=== PATIENT | female | born 1995 | race Caucasian/White ===

== ENCOUNTER 2016-11-09 14:35 | Emergency (ER) | payer OTHER ==
[~2016-11-09] VITALS: Ht 157.5 cm; Wt 60.0 kg
[2016-11-09 14:42] VITALS: Ht 157.5 cm; Wt 60.0 kg
[2016-11-09 17:24] LABS: URINE BLOOD (Dip) POC Trace-intact (NEGATIVE)
--- NOTE | 2016-11-09 19:14 | RADRPT ---
PROCEDURE: US OB. CLINICAL INDICATION: Pain TECHNIQUE: Transabdominal imaging of the pelvis was performed. Images are reviewed on a high-reso [employer] PACS workstation. COMPARISON: None available FINDINGS: Single intrauterine gestation is identified. heart rate is 176 bpm. [place]-rump length = 4.87 cm. Gestational age is 11 weeks 1 day and QING is 05/30/2017 by ultrasound criteria. Left ovary is unremarkable. Right ovary is not visualized. No adnexal mass or pelvic free fluid is identified. IMPRESSION: 1. Single live intrauterine with an estimated gestational age of 11 weeks 1 day by ultras ound criteria, as above. RPTAT: HDWR .Bin Escobedo MD, MD Date Time Electronically viewed and signed by .Bin Escobedo MD, on 11/09/2016 19:14 .R/
[2016-11-09 19:21] LABS: BASOPHILS % 0.3 % (0.0-2.0); EOSINOPHILS # 0.2 10^3/ul (0.0-0.5); EOSINOPHILS % 2.2 % (0.0-7.0); HEMATOCRIT 36.7 % (37.0-47.0); HEMOGLOBIN 12.5 g/dl (12.0-16.0); LYMPHOCYTES # 1.4 10^3/ul (0.8-2.9); LYMPHOCYTES % 17.4 % (15.0-51.0); MEAN CORPUSCULAR HEMOGLOBIN 29.1 pg (29.0-33.0); MEAN CORPUSCULAR HGB CONC 34.1 g/dl (32.0-37.0); MEAN CORPUSCULAR VOLUME 85.3 fl (82.0-101.0); MEAN PLATELET VOLUME 6.8 fl (7.4-10.4); MONOCYTE # 0.5 10^3/ul (0.3-0.9); MONOCYTES % 6.5 % (0.0-11.0); NEUTROPHILS % 73.6 % (39.0-77.0); PLATELET COUNT 339 10^3/UL (140-440); RED BLOOD COUNT 4.31 10^6/ul (4.20-5.40); RED CELL DISTRIBUTION WIDTH 13.2 % (11.5-14.5); UNCORRECTED WBC 8.1 10^3/ul (4.8-10.8); WHITE BLOOD COUNT 8.1 10^3/ul (4.8-10.8)
[2016-11-09 19:27] LABS: CONDITION 1
[2016-11-09] MEDS ORDERED: ACET325T33 PO (21:00)
[2016-11-09] MEDS ORDERED: CEPH-443 PO (21:00)
--- NOTE | 2016-11-09 21:04 | ERD ---
ER Documentation Chief Complaint Date/Time DATE: 11/09/16 TIME: 21:02 Chief Complaint PELVIC PAIN S/P LIFTING HEAVY OBJECT, UNKNOW HOW LONG, DENIES VB HPI 21-year-old female with no significant past medical history is a presents the ED complaining of lower abdominal pain that started earlier today. 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 Describes pain as stabbing and rates it a 9 out of 10. States that her last menses was at the end of July. Denies any fever, chills, chest pain, shortness of breath, wheezing, nausea, vomiting, diarrhea. States that she does not have an RIDDLER OPERATOR. Reports that she is unsure of exact date of last menses. ROS All systems reviewed and are negative except as per history of present illness. Medications Home Meds Active Scripts Acetaminophen* (Tylenol*) 325 Mg Tablet, 1 TAB PO Q6 Y for PAIN AND OR ELEVATED TEMP, #20 TAB Prov:EMETERIO HO PA-C 11/09/16 Cephalexin* (Keflex*) 500 Mg Capsule, 500 MG PO QID for 7 Days, CAP Prov:EMETERIO HO PA-C 11/09/16 Allergies Allergies: Coded Allergies: No Known Allergy (Unverified , 11/09/16) PMhx/Soc Medical and Surgical Hx: pt denies Medical Hx, pt denies Surgical Hx Hx Alcohol Use: No Hx Substance Use: No Hx Tobacco Use: No Smoking Status: Never smoker Physical Exam Vitals Vital Signs Date Time Temp Pulse Resp B/P Pulse Ox O2 Delivery O2 Flow Rate FiO2 11/09/16 14:42 98.0 100 18 131/67 98 Physical Exam Const: [id number], well-nourished. In no acute distress. Head: Atraumatic, normocephalic Eyes: Normal Conjunctiva without injection. No purulent discharge. ENT: Normal external ear, nose. Moist oropharynx without tonsillar exudates. Non -erythematous pharynx. Uvula midline. No drooling. No trismus. Neck: No cervical midline tenderness. Full range of motion. No meningismus. No cervical lymphadenopathy. No JVD. Resp: Clear to auscultation bilaterally. No wheezing, rhonchi, rales, or crackles. No accessory muscle use. No retractions. Cardio: Regular rate and rhythm. No murmurs, rubs or gallops. Abd: Soft, slight tenderness to palpation of generalized abdomen, non distended. Normal bowel sounds. No palpable masses. No rebound tenderness. No guarding. Negative McBurney's point. Negative psoas sign. Negative obturator sign. Skin: No petechiae or rashes Back: No midline tenderness. No CVA tenderness. Ext: No cyanosis, or edema. Neur: Awake and alert. Normal gait. Normal coordination. Psych: Normal Mood and Affect Result Diagram: 11/09/16 1850 Results 24 hrs Laboratory Tests Test 11/09/16 17:16 11/09/16 17:24 11/09/16 18:50 Urine Bilirubin NEGATIVE Urine Clarity CLEAR Urine Color LT. YELLOW Urine Glucose NEGATIVE% Urine Hemoglobin NEGATIVE Urine Ketones NEGATIVE Urine Leukocyte Esterase NEGATIVE Urine Nitrite NEGATIVE Urine Specific Cooks 1.025 Urine Total Protein NEGATIVE Urine Urobilinogen 0.2 E.U./dL Urine pH 6.0 Bedside Urine Blood Trace-intact Bedside Urine Glucose (UA) Negative Bedside Urine Ketones (LAB) Negative Bedside Urine Leukocyte Esterase (L Negative Bedside Urine Nitrite (LAB) Positive Bedside Urine Protein (LAB) Negative Bedside Urine pH (LAB) 6.0 Basophils # 0.010^3/ul Basophils % 0.3% Beta HCG, Quantitative 709112.0mIU/ml Blood Morphology Comment Eosinophils # 0.210^3/ul Eosinophils % 2.2% Hematocrit 36.7% Hemoglobin 12.5g/dl Lymphocytes # 1.410^3/ul Lymphocytes % 17.4% Mean Corpuscular Hemoglobin 29.1pg Mean Corpuscular Hemoglobin Concent 34.1g/dl Mean Corpuscular Volume 85.3fl Mean Platelet Volume 6.8fl Monocytes # 0.510^3/ul Monocytes % 6.5% Neutrophils # 6.010^3/ul Neutrophils % 73.6% Nucleated Red Blood Cells # 0.010^3/ul Nucleated Red Blood Cells % 0.0/100WBC Platelet Count 27714^3/UL Red Blood Count 4.3110^6/ul Red Cell Distribution Width 13.2% White Blood Count 8.110^3/ul Procedures/MDM This is a 21-year-old female who is a presents the ED complaining of lower abdominal pain and is currently . Patient is afebrile and nontoxic-appearing. Patient has normal vital signs. An ultrasound, beta-hCG, CBC, type and RH, UA was ordered to evaluate patient. CBC: No evidence of severe infection or anemia Urine: Positive nitrites, no leukocyte esterase, trace hematuria. Rh: A positive. No indication for Rhogam at this time. beta Hc. PROCEDURE: US OB. CLINICAL INDICATION: Pain TECHNIQUE: Transabdominal imaging of the pelvis was performed. Images are reviewed on a high-resolution PACS workstation. COMPARISON: None available FINDINGS: Single intrauterine gestation is identified. heart rate is 176 bpm. [place]-rump length = 4.87 cm. Gestational age is 11 weeks 1 day and QING is 05/30/2017 by ultrasound criteria. Left ovary is unremarkable. Right ovary is not visualized. No adnexal mass or pelvic free fluid is identified. IMPRESSION: 1. Single live intrauterine with an estimated gestational age of 11 weeks 1 day by ultrasound criteria, as above. Patient has a single live intrauterine estimated to be 11 weeks, 1 day shown in her ultrasound. Low suspicion for symptomatic anemia, ectopic , sepsis, PID, appendicitis, ovarian torsion, tubo-ovarian abscess, surgical abdomen, splenic injury, liver laceration or other emergent conditions. Discharge medications: Keflex, Tylenol Patient to follow up with RIDDLER OPERATOR in 2 days for further evaluation and treatment. Patient is to return sooner to the ED for any worsening symptoms. Patient's questions were answered. Patient understood and agreed with discharge plan. Departure Diagnosis: Primary Impression: Abdominal pain in Trimester: unspecified trimester Qualified Code: O26.899 - Abdominal pain in , unspecified trimester Additional Impression: Urinary tract infection Urinary tract infection type: site unspecified Hematuria presence: without hematuria Qualified Code: N39.0 - Urinary tract infection without hematuria, site unspecified Condition: Stable Patient Instructions: Urinary Tract Infections in Women, : Common Questions, : Body Changes, , Established, Normal Symptoms Referrals: COMMUNITY CLINICS YOU HAVE RECEIVED A MEDICAL SCREENING EXAM AND THE RESULTS INDICATE THAT YOU DO NOT HAVE A CONDITION THAT REQUIRES URGENT TREATMENT IN THE EMERGENCY DEPARTMENT. FURTHER EVALUATION AND TREATMENT OF YOUR CONDITION CAN WAIT UNTIL YOU ARE SEEN IN YOUR DOCTORS OFFICE WITHIN THE NEXT 1-2 DAYS. IT IS YOUR RESPONSIBILITY TO MAKE AN APPOINTMENT FOR FOLOW-UP CARE. IF YOU HAVE A PRIMARY DOCTOR --you should call your primary doctor and schedule an appointment IF YOU DO NOT HAVE A PRIMARY DOCTOR YOU CAN CALL OUR PHYSICIAN REFERRAL HOTLINE AT IF YOU CAN NOT AFFORD TO SEE A PHYSICIAN YOU CAN CHOSE FROM THE FOLLOWING [facility] [address] [facility] [address] [facility] [facility] [address] [facility] [address] [facility] [address] [facility]. [facility] [address] [facility]. [facility] YOU HAVE RECEIVED A MEDICAL SCREENING EXAM AND THE RESULTS INDICATE THAT YOU DO NOT HAVE A CONDITION THAT REQUIRES URGENT TREATMENT IN THE EMERGENCY DEPARTMENT. FURTHER EVALUATION AND TREATMENT OF YOUR CONDITION CAN WAIT UNTIL YOU ARE SEEN IN YOUR DOCTORS OFFICE WITHIN THE NEXT 1-2 DAYS. IT IS YOUR RESPONSIBILITY TO MAKE AN APPOINTMENT FOR FOLOW-UP CARE. IF YOU HAVE A PRIMARY DOCTOR --you should call your primary doctor and schedule and appointment IF YOU DO NOT HAVE A PRIMARY DOCTOR YOU CAN CALL OUR PHYSICIAN REFERRAL HOTLINE AT . IF YOU CAN NOT AFFORD TO SEE A PHYSICIAN YOU CAN CHOSE FROM THE FOLLOWING [facility]: [facility] [address] [place] [address] [facility] [address] [place] [address] [facility] [address] [place] [address] RIDDLER OPERATOR [place] [address] [facility] [address] [place] [address] OFFICE FAX [address] [place] [address] [address] [facility] [address] [place], [place] [id number] [facility] [address] [facility], [address] [place] [address] [address] [place] [address] [facility], [place] [address] [facility] [place] [address] [place] [address] [phone] [address] [facility], [place] [address] - [address] PADRON AMARJIT [address], [place] [address] DR YOO, OLGA [place]IDIA [address] [facility] [address], [place] [address] DR REHMAN, [facility] [address] [place], [place] [id number] [facility] Hours: 8:00 am - 5:00 pm Additional Instructions: FOLLOW UP WITH YOUR PRIMARY CARE PHYSICIAN TOMORROW. Return to this facility if you are not improving as expected. EMETERIO HO PA-C Nov 09, 2016 21:04
[2016-11-09 22:10] LABS: ADD UMIC NO; URINE BILIRUBIN (Dip) NEGATIVE (NEGATIVE); URINE BLOOD (Dip) NEGATIVE (NEGATIVE); URINE COLOR LT. YELLOW (YELLOW); URINE GLUCOSE (Dip) NEGATIVE (NEGATIVE); URINE KETONES (Dip) NEGATIVE (NEGATIVE); URINE LEUKOCYTE ESTERASE (Dip) NEGATIVE (NEGATIVE); URINE NITRITE (Dip) NEGATIVE (NEGATIVE); URINE TOTAL PROTEIN (Dip) NEGATIVE (NEGATIVE); URINE UROBILINOGEN (Dip) 0.2 E.U./dL (0.1-1.0)
== END 2016-11-09 21:10 | disposition home or self-care (01) ==
LOC: FTE 14:35
DX: O9A.211 Injury, poisoning and certain other consequences of external causes complicating pregnancy, first trimester (principal); S39.91XA Unspecified injury of abdomen, initial encounter; O23.41 Unspecified infection of urinary tract in pregnancy, first trimester; O26.891 Other specified pregnancy related conditions, first trimester; R10.2 Pelvic and perineal pain; X50.0XXA Overexertion from strenuous movement or load, initial encounter; Y92.9 Unspecified place or not applicable; Z3A.11 11 weeks gestation of pregnancy
CPT/HCPCS: 36415; 76801; 81003; 84702; 85025; 86900; 86901; Z7502

== ENCOUNTER 2017-05-25 08:08 | Inpatient (IN) | payer OTHER ==
[2017-05-25] VITALS (9 sets, daily range): BP systolic 108–120; BP diastolic 55–77; PULSE 82–101; RESP 18–20; Ht 157.5 cm; Wt 74.5 kg
[~2017-05-25] VITALS: Ht 157.5 cm; Wt 74.5 kg
[~2017-05-25 08:08] MED LIST: ACET325T33 PO; CEPH-443 PO
[2017-05-25] MEDS ORDERED: PRENAT PO (08:16)
--- NOTE | 2017-05-25 09:10 | RADRPT ---
PROCEDURE: Obstetrical ultrasound greater than 14 weeks CLINICAL INDICATION: Macrosomia TECHNIQUE: Real time sonographic imaging of the gravid uterus is performed transabdominally and mu ltiple static gonsalez scale and Doppler images are submitted for review as are measurements. The image s are reviewed on the PACS. COMPARISON: No relevant exams are available FINDINGS: There is a single living intrauterine gestation in cephalic presentation. The heart beat is estimated at144.35 bpm. The measurements are as follows: BPD:9.3 cm HC:34.6 cm AC:37.2 cm FL:7.74 cm Head circumference/abdominal circumference: 0.93 Estimated gestational age is 39 weeks 5 days. The estimated date of delivery is 05/27/2017. The estimated weight is 4020 g plus or minus 602 g. Placenta is anterior and grade 2. There is no evidence of placenta previa or abruption. anatomic survey is performed and shows no abnormality, the three-vessel cord and cord insertio n are unremarkable. RPTAT: [facility] IMPRESSION: 1. Single viable intrauterine gestation estimated at 39 weeks 5 days with the estimated date of deli very 05/27/2017. 2. Presentation is cephalic. 3. EFW: 4020 gram (82%) .Chasity Thorpe MD, Date Time Electronically viewed and signed by .Chasity Thorpe MD, MD on 05/25/2017 09:10 .Aruna/
[2017-05-25] MEDS: LACTATED RINGER'S 1,000 ML IV SCH ×3 (09:48→15:45)
[2017-05-25 09:56] LABS: INR 0.88; PROTIME 11.9 Sec (12.2-14.2); PT RATIO 0.9
[2017-05-25] MEDS ORDERED: CEFAZOLIN 2 GM/50 ML (PMX) 50 ML IV SCH (10:00)
[2017-05-25] MEDS ORDERED: METHYLERGONOVINE 0.2 MG INJ IM PRN ×2 (10:00→16:00)
[2017-05-25] MEDS ORDERED: OXYTOCIN 30 UNITS/LR 500 ML IV PRN ×2 (10:00→16:00)
[2017-05-25] MEDS ORDERED: CITRIC ACID/NA CITRATE 30 ML CUP PO ONE (10:00)
[2017-05-25] MEDS ORDERED: MISOPROSTOL 200 MCG TAB PR PRN ×2 (10:00→16:00)
[2017-05-25] MEDS ORDERED: OXYTOCIN 30 UNITS/LR 500 ML IV SCH (10:00)
[2017-05-25] MEDS ORDERED: CARBOPROST 250 MCG INJ IM PRN ×2 (10:00→16:00)
[2017-05-25 10:09] LABS: BASOPHILS % 0.4 % (0.0-2.0); EOSINOPHILS # 0.1 10^3/ul (0.0-0.5); EOSINOPHILS % 1.1 % (0.0-7.0); HEMATOCRIT 35.5 % (37.0-47.0); HEMOGLOBIN 11.7 g/dl (12.0-16.0); MEAN CORPUSCULAR VOLUME 87.9 fl (82.0-101.0); MEAN PLATELET VOLUME 9.7 fl (7.4-10.4); MONOCYTE # 0.6 10^3/ul (0.3-0.9); MONOCYTES % 7.4 % (0.0-11.0); NEUTROPHIL # 5.6 10^3/ul (1.6-7.5); NEUTROPHILS % 66.6 % (39.0-77.0); PLATELET COUNT 238 10^3/UL (140-415); RED BLOOD COUNT 4.04 10^6/ul (4.20-5.40); RED CELL DISTRIBUTION WIDTH 14.7 % (11.5-14.5); WHITE BLOOD COUNT 8.4 10^3/ul (4.8-10.8)
[2017-05-25] MEDS ORDERED: METOCLOPRAMIDE 10 MG INJ ONE (11:04)
[2017-05-25] MEDS ORDERED: morphine SULFATE/PF (10 MG/10 ML) INJ ONE (11:04)
[2017-05-25] MEDS ORDERED: KETOROLAC 30 MG INJ ONE (11:04)
[2017-05-25] MEDS ORDERED: FENTAnyl 50 MCG/ML VIAL ONE (12:11)
[2017-05-25] MEDS ORDERED: MIDAZOLAM 1 MG/ML 2 ML INJ ONE (12:14)
[2017-05-25] MEDS ORDERED: PROPOFOL 20 ML ONE (12:19)
[2017-05-25] MEDS ORDERED: MAGNESIUM SULFATE 4 GM/100 ML 100 ML IV ONE (14:30)
[2017-05-25 14:57] LABS: BASOPHILS % 0.2 % (0.0-2.0); EOSINOPHILS # 0.1 10^3/ul (0.0-0.5); EOSINOPHILS % 0.4 % (0.0-7.0); HEMOGLOBIN 12.2 g/dl (12.0-16.0); LYMPHOCYTES # 1.9 10^3/ul (0.8-2.9); LYMPHOCYTES % 15.5 % (15.0-51.0); MEAN CORPUSCULAR HEMOGLOBIN 29.3 pg (29.0-33.0); MEAN CORPUSCULAR VOLUME 88.7 fl (82.0-101.0); MEAN PLATELET VOLUME 9.3 fl (7.4-10.4); MONOCYTE # 0.4 10^3/ul (0.3-0.9); MONOCYTES % 3.5 % (0.0-11.0); NEUTROPHIL # 9.6 10^3/ul (1.6-7.5); NEUTROPHILS % 79.5 % (39.0-77.0); PLATELET COUNT 232 10^3/UL (140-415); RED BLOOD COUNT 4.17 10^6/ul (4.20-5.40); RED CELL DISTRIBUTION WIDTH 14.7 % (11.5-14.5)
[2017-05-25 15:07] LABS: ADD UMIC YES; UR ASCORBIC ACID NEGATIVE (NEGATIVE); UR BACTERIA MODERATE /HPF (NONE SEEN); UR BILIRUBIN (Dip) NEGATIVE (NEGATIVE); UR BLOOD (Dip) 1+ mg/dL (NEGATIVE); UR CLARITY CLEAR (CLEAR); UR COLOR YELLOW (YELLOW); UR GLUCOSE (Dip) 1+ mg/dL (NEGATIVE); UR KETONES (Dip) TRACE mg/dL (NEGATIVE); UR LEUKOCYTE ESTERASE (Dip) TRACE Leu/ul (NEGATIVE); UR NITRITE (Dip) NEGATIVE (NEGATIVE); UR RBC 8 /HPF (0-5); UR SPECIFIC GRAVITY (Dip) 1.011 (1.003-1.030); UR TOTAL PROTEIN (Dip) NEGATIVE (NEGATIVE); UR UROBILINOGEN (Dip) NEGATIVE (NEGATIVE)
[2017-05-25] MEDS: MAGNESIUM SULFATE 20 GM/500 ML 500 ML IV SCH (15:11)
[2017-05-25 15:12] LABS: INR 0.97; PROTIME 12.9 Sec (12.2-14.2)
[2017-05-25 15:13] LABS: PARTIAL THROMBOPLASTIN TIME 26.4 Sec (25.0-35.0)
[2017-05-25 15:16] LABS: ALBUMIN 3.3 g/dl (3.3-4.9); ALBUMIN/GLOBULIN RATIO 1.06; BILIRUBIN,INDIRECT 0.1 mg/dl (0-1.1); BILIRUBIN,TOTAL 0.1 mg/dl (0.2-1.3); CALCIUM 9.4 mg/dl (8.4-10.2); CREATININE 0.58 mg/dl (0.44-1.00); POTASSIUM 4.8 mmol/L (3.5-5.1); TOTAL PROTEIN 6.4 g/dl (6.1-8.1); URIC ACID 5.4 mg/dl (3.1-7.9)
[2017-05-25] MEDS ORDERED: METHYLERGONOVINE 0.2 MG TAB PO PRN (16:00)
[2017-05-25] MEDS ORDERED: LANOLIN 7 GM TUBE TOP PRN (16:00)
[2017-05-25] MEDS ORDERED: DIPHENHYDRAMINE 50 MG INJ IV PRN ×2 (16:00→16:30)
[2017-05-25] MEDS ORDERED: ONDANSETRON 4 MG INJ IV PRN ×2 (16:00→16:30)
[2017-05-25] MEDS ORDERED: NALOXONE (0.4 MG/ML) INJ IV PRN (16:00)
[2017-05-25] MEDS ORDERED: CEFAZOLIN 1 GM/50 ML (PMX) 50 ML IV ONE (16:00)
[2017-05-25] MEDS ORDERED: ACETAMINOPHEN/CODEINE #3 TAB PO PRN (16:00)
[2017-05-25] MEDS ORDERED: HYDROmorphONE 1 MG/ML SYG IV PRN ×3 (16:00)
[2017-05-25] MEDS ORDERED: HYDROmorphONE (0.2 MG/ML) 10ML SYG IV PRN ×3 (16:30)
[2017-05-25] MEDS ORDERED: MEPERIDINE 25 MG INJ IV PRN (16:30)
[2017-05-25] MEDS ORDERED: METOCLOPRAMIDE 10 MG INJ IV PRN (16:30)
[2017-05-25] MEDS: OXYTOCIN 30 UNITS/LR 500 ML IV SCH (17:58)
[2017-05-25] MEDS: SENNA/DOCUSATE NA (8.6MG/50MG) TAB PO SCH (21:00)
[2017-05-25] MEDS: KETOROLAC 30 MG INJ IV PRN (22:29)
[2017-05-26] VITALS (14 sets, daily range): BP systolic 102–118; BP diastolic 57–72; PULSE 61–97; RESP 18–20
[2017-05-26] MEDS: OXYTOCIN 30 UNITS/LR 500 ML IV SCH (01:17)
[2017-05-26] MEDS: MAGNESIUM SULFATE 20 GM/500 ML 500 ML IV SCH (01:21)
[2017-05-26] MEDS: KETOROLAC 30 MG INJ IV PRN ×2 (04:29→12:48)
[2017-05-26] MEDS ORDERED: ACETAMINOPHEN 325 MG TAB PO PRN (07:00)
[2017-05-26 07:33] LABS: BASOPHILS % 0.3 % (0.0-2.0); EOSINOPHILS # 0.1 10^3/ul (0.0-0.5); EOSINOPHILS % 0.4 % (0.0-7.0); HEMATOCRIT 30.2 % (37.0-47.0); HEMOGLOBIN 9.9 g/dl (12.0-16.0); LYMPHOCYTES # 1.4 10^3/ul (0.8-2.9); LYMPHOCYTES % 12.6 % (15.0-51.0); MEAN CORPUSCULAR HEMOGLOBIN 28.7 pg (29.0-33.0); MEAN CORPUSCULAR HGB CONC 32.8 g/dl (32.0-37.0); MEAN CORPUSCULAR VOLUME 87.5 fl (82.0-101.0); MEAN PLATELET VOLUME 9.1 fl (7.4-10.4); MONOCYTE # 0.5 10^3/ul (0.3-0.9); MONOCYTES % 4.3 % (0.0-11.0); NEUTROPHIL # 9.4 10^3/ul (1.6-7.5); NEUTROPHILS % 82.1 % (39.0-77.0); PLATELET COUNT 208 10^3/UL (140-415); RED BLOOD COUNT 3.45 10^6/ul (4.20-5.40); RED CELL DISTRIBUTION WIDTH 14.9 % (11.5-14.5); WHITE BLOOD COUNT 11.4 10^3/ul (4.8-10.8)
[2017-05-26 07:42] LABS: CREATININE 0.58 mg/dl (0.44-1.00); POTASSIUM 4.6 mmol/L (3.5-5.1)
--- NOTE | 2017-05-26 07:44 | OPR ---
DATE OF OPERATION: 05/25/2017 She delivered. Had a baby boy on 05/25/2017 at 12:11 p.m. 9, 9, weighing 9 pounds 11 ounces. Height 20.5 inches long with one nuchal cord around the babies neck. Dictated By: Renetta Amor MD /dada/ss /Document#: [id number]
[2017-05-26] MEDS: LACTATED RINGER'S 1,000 ML IV SCH ×3 (07:45→15:45)
[2017-05-26] MEDS: SENNA/DOCUSATE NA (8.6MG/50MG) TAB PO SCH ×2 (09:43→20:28)
--- NOTE | 2017-05-26 10:02 | OPR ---
DATE OF OPERATION: 05/25/2017 PREOPERATIVE DIAGNOSES: 1. A 39-6/7 weeks intrauterine with suspected macrosomia; patient desires section. 2. Gestational diabetes, diet controlled. POSTOPERATIVE DIAGNOSES: 1. A 39-6/7 weeks intrauterine with suspected macrosomia; patient desires section. 2. Gestational diabetes, diet controlled. OPERATION PERFORMED: Primary low transverse section. SURGEON: Renetta Amor MD CO CHAIRMAN: . ANESTHESIA: Failed spinal, then epidural. ANESTHESIOLOGIST: Dr. Richards. OPERATIVE TECHNIQUE: Under failed spinal and then good epidural, the patient was prepped and draped in the usual sterile fashion for abdominal surgery. After checking for the effect of the anesthesia, a Pfannenstiel 12 cm skin incision was performed. The incision was carried from the skin up to the fascia. Upon opening the skin up to the fascia, small blood vessels were noted to be oozing and these were cauterized. The fascia was opened transversely followed by splitting the muscles vertical in the peritoneum vertically. Upon opening the abdominal cavity, the bladder blade was put in place. A small rita was performed from the serosa up to the endometrium on the lower uterine segment, and then it was carried sidewise through the aid of two fingers. My left hand was inserted in the lower segment of the uterus and the bag of water was ruptured. Clear fluid was noted. Baby's head was delivered and baby's was quickly suctioned of amniotic fluid. There was one nuchal tight cord around the baby's neck that needs to be released prior to the delivery of the rest of the body of the baby. The baby's cord was clamped after 30 seconds, and then the baby was handed to the nursery nurse. The placenta was delivered manually and complete. The uterus was exteriorized. The uterus was cleansed with a wet lap sponge, to make sure that no membranes were left behind. After correct sponge count, the uterus was closed in the usual fashion using #1 chromic for the first layer. Continuous locking suture was used followed by #1 chromic for the second layer. Imbricating sutures were used. Bleeders were checked and there was no bleeding noted. After checking for any bleeders and which there were note, both tubes and ovaries were inspected. They were healthy looking. The back of the uterus was checked for any hematoma, and there was none noted. Then, after correct sponge count, needle count and instrument count was confirmed, the uterus was back into the pelvic cavity. Once again, the uterine incision was checked for any bleeders and there was no bleeding noted. After correct sponge count, needle count and instrument count as confirmed by the injection maintenance technician and product marketing programs manager, the abdomen was closed in the usual fashion using 0 Vicryl for the peritoneum, 0 Vicryl for the muscles, for the fascia 0 Vicryl continuous stitch was used followed by a few [id number] sutures. The subcutaneous tissue was closed with 3-0 Vicryl, and the skin was closed with 3-0 Vicryl, subcuticular suture was used. The patient tolerated the procedure well. Estimated blood loss about 600 mL. Vital signs were stable during and after the procedure. After the baby was born, the uterus was hypotonic so Methergine was given and Pitocin was transfused, and the uterus contracted. Dictated By: Renetta Amor MD /bryant/ec /Document#: [id number]
--- NOTE | 2017-05-26 11:03 | PN ---
Date/Time of Note Date/Time of Note DATE: 05/26/17 TIME: 11:00 Assessment/Plan VTE Prophylaxis VTE Prophylaxis Intervention: ambulation Lines/Catheters IV Catheter Type (from Nrsg): Peripheral IV Subjective 24 Hr Interval Summary Free Text/Dictation Anesthesia Note: A 21 year old female s/p spinal duramorph pod #1 is doing fine. No itching, headache, back pain, pain is controlled. no back infectoin or irritatin. are per surgery team Exam/Review of Systems Vital Signs Vitals Vital Signs Date Time Temp Pulse Resp B/P Pulse Ox O2 Delivery O2 Flow Rate FiO2 05/26/17 06:30 82 18 104/60 Room Air 05/26/17 04:30 98.2 05/26/17 03:03 96 21 Intake and Output 05/25/17 05/25/17 05/26/17 15:00 23:00 07:00 Intake Total 2525 ml 1150 ml 925 ml Output Total 250 ml 1300 ml 800 ml Balance 2275 ml -150 ml 125 ml Results Result Diagram: 05/26/17 0651 05/26/17 0651 Results 24 hrs Laboratory Tests Test 05/25/17 14:35 05/25/17 14:45 05/25/17 18:25 05/26/17 00:49 Urine Color YELLOW Urine Clarity CLEAR Urine pH 6.0 Urine Specific [place] 1.011 Urine Ketones TRACE A Urine Nitrite NEGATIVE Urine Bilirubin NEGATIVE Urine Urobilinogen NEGATIVE Urine Leukocyte Esterase TRACE A Urine Microscopic RBC 8 H Urine Microscopic WBC 3 Urine Bacteria MODERATE Urine Hemoglobin 1+ H Urine Glucose 1+ H Urine Total Protein NEGATIVE White Blood Count 12.0 #H Red Blood Count 4.17 L Hemoglobin 12.2 Hematocrit 37.0 Mean Corpuscular Volume 88.7 Mean Corpuscular Hemoglobin 29.3 Mean Corpuscular Hemoglobin Concent 33.0 Red Cell Distribution Width 14.7 H Platelet Count 232 Mean Platelet Volume 9.3 Neutrophils % 79.5 H Lymphocytes % 15.5 Monocytes % 3.5 Eosinophils % 0.4 Basophils % 0.2 Nucleated Red Blood Cells % 0.0 Neutrophils # 9.6 H Lymphocytes # 1.9 Monocytes # 0.4 Eosinophils # 0.1 Basophils # 0.0 Nucleated Red Blood Cells # 0.0 Prothrombin Time 12.9 Prothrombin Time Ratio 1.0 INR International Normalized Ratio 0.97 Activated Partial Thromboplast Time 26.4 Fibrinogen 538.0 H Sodium Level 139 Potassium Level 4.8 Chloride Level 100 Carbon Dioxide Level 27 Anion Gap 17 H Blood Urea Nitrogen 10 Creatinine 0.58 Glucose Level 75 Uric Acid 5.4 Calcium Level 9.4 Total Bilirubin 0.1 L Direct Bilirubin 0.00 Indirect Bilirubin 0.1 Aspartate Amino Transf (AST/SGOT) 30 Alanine Aminotransferase (ALT/SGPT) 25 Alkaline Phosphatase 217 H Total Protein 6.4 Albumin 3.3 Globulin 3.10 Albumin/Globulin Ratio 1.06 Magnesium Level 5.4 *H 6.9 *H Test 05/26/17 06:51 05/26/17 06:52 White Blood Count 11.4 H Red Blood Count 3.45 L Hemoglobin 9.9 L Hematocrit 30.2 L Mean Corpuscular Volume 87.5 Mean Corpuscular Hemoglobin 28.7 L Mean Corpuscular Hemoglobin Concent 32.8 Red Cell Distribution Width 14.9 H Platelet Count 208 Mean Platelet Volume 9.1 Neutrophils % 82.1 H Lymphocytes % 12.6 L Monocytes % 4.3 Eosinophils % 0.4 Basophils % 0.3 Nucleated Red Blood Cells % 0.0 Neutrophils # 9.4 H Lymphocytes # 1.4 Monocytes # 0.5 Eosinophils # 0.1 Basophils # 0.0 Nucleated Red Blood Cells # 0.0 Sodium Level 130 L Potassium Level 4.6 Chloride Level 92 L Carbon Dioxide Level 30 Anion Gap 13 Blood Urea Nitrogen 9 Creatinine 0.58 Glucose Level 68 L Calcium Level 7.0 L Magnesium Level 6.7 *H Medications Medications Current Medications Magnesium Sulfate 500 ml @ 25 mls/hr Q20H IV Last administered on 05/26/17 01 :21; Admin Dose 50 MLS/HR; Start 05/25/17 at 14:27 Lactated Ringer's (Lr) 1,000 ml @ 125 mls/hr Q8H IV Last administered on 08:30; Admin Dose 125 MLS/HR; Start 05/25/17 at 15:45 Methylergonovine Maleate (Methergine) 0.2 mg Q6H PRN PO VAGINAL BLEEDING; Start 05/25/17 at 16:00 Acetaminophen/ Codeine Phosphate (Tylenol No.3) 1 tab Q4H PRN PO PAIN LEVEL 4-6 ; Start 05/25/17 at 16:00 Acetaminophen/ Codeine Phosphate (Tylenol No.3) 2 tab Q4H PRN PO PAIN LEVEL 7- 10; Start 05/25/17 at 16:00 Ibuprofen (Motrin) 800 mg Q8 PO ; Start 05/26/17 at 14:00 Simethicone (Mylicon) 160 mg Q8H PRN PO DISTENSION/GAS/BLOATING; Start at 16:00 Senna/Docusate Sodium (Senokot-S) 1 tab BID PO ; Start 05/25/17 at 21:00 Diphtheria/ Tetanus/Acell Pertussis (Adacel) 0.5 ml ONCE ONCE IM* ; Start at 09:00; Stop 05/28/17 at 09:01 Measles/Mumps/ Rubella Vaccine Live 0.5 ml 0.5 ml ONCE ONCE SC* ; Start at 09:00; Stop 05/28/17 at 09:01 Oxytocin/Lactated Ringer's 500 ml @ 0 mls/hr ONCE PRN IV For Hemorrhage Management; Start 05/25/17 at 16:00 Methylergonovine Maleate (Methergine) 0.2 mg ONCE PRN IM VAGINAL BLEEDING; Start 05/25/17 at 16:00 Carboprost Tromethamine (Hemabate) 250 mcg ONCE PRN IM VAGINAL BLEEDING; Start 05/25/17 at 16:00 Misoprostol (Cytotec) 1,000 mcg ONCE PRN DC VAGINAL BLEEDING; Start 05/25/17 at 16:00 Oxycodone/ Acetaminophen (Percocet (5/ 325)) 1 tab Q4H PRN PO PAIN; Start 05/25 at 16:00 Naloxone HCl (Narcan) 0.1 mg Q2M PRN IV FOR RESP RATE 8 OR LESS; Start at 16:00; Stop 05/26/17 at 15:59 Ketorolac Tromethamine (Toradol) 30 mg Q6H PRN IV PAIN Last administered on t 04:29; Admin Dose 30 MG; Start 05/25/17 at 16:00; Stop 05/26/17 at 15:59 Hydromorphone HCl (Dilaudid) 1 mg Q3H PRN IV BREAKTHROUGH PAIN; Start 05/25/17 at 16:00; Stop 05/26/17 at 15:59 Hydromorphone HCl (Dilaudid) 0.2 mg Q3H PRN IV PAIN LEVEL 1-5; Start 05/25/17 at 16:00; Stop 05/26/17 at 15:59 Hydromorphone HCl (Dilaudid) 0.4 mg Q3H PRN IV PAIN LEVEL 6-10; Start 05/25/17 at 16:00; Stop 05/26/17 at 15:59 Diphenhydramine HCl (Benadryl) 25 mg Q6H PRN IV ITCHING; Start 05/25/17 at 16: 00; Stop 05/26/17 at 15:59 Ondansetron HCl (Zofran Inj) 4 mg Q6H PRN IV NAUSEA AND/OR VOMITING; Start at 16:00; Stop 05/26/17 at 15:59 Acetaminophen (Tylenol Tab) 650 mg Q4H PRN PO PAIN AND OR ELEVATED TEMP Last administered on 05/26/17t 06:48; Admin Dose 650 MG; Start 05/26/17 at 07:00 JURGEN HANSEN MD May 26, 2017 11:03
[2017-05-26] MEDS ORDERED: BISACODYL 10 MG SUPP PR ONE (12:00)
--- NOTE | 2017-05-26 12:44 | HP ---
DATE OF ADMISSION: 05/25/2017 HISTORY OF PRESENT ILLNESS: This is a 21-year-old lady, 1, EDC 05/26/2017 at 39-6/7 weeks, admitted to the labor and delivery area in early labor for possible after the ultrasound. This patient is known to have an estimated weight of greater than 4000 grams. This was done about 2 days prior to admission. The patient and the wanted to go for . She had care in my office, and the care was uneventful except this patient has diabetes, diet controlled. She had menarche at the age of 11, every 28 days interval, 3-4 days duration and moderate in amount. FAMILY HISTORY: Noncontributory. REVIEW OF SYSTEMS: CARDIOVASCULAR: No chest pain. RESPIRATORY: No cough. GASTROINTESTINAL: No diarrhea, no vomiting. GENITOURINARY: No dysuria. PHYSICAL EXAMINATION: GENERAL: A conscious, coherent lady in no acute distress. VITAL SIGNS: Blood pressure 120/80, pulse rate 80 per minute, respirations 16 per minute. BREASTS, HEART, LUNGS: Within normal limits. ABDOMEN: Soft. Fundic height 40 cm. heart tones 140 per minute. PELVIC: Cervix closed, patient floating in cephalic presentation with the bag of water intact. EXTREMITIES: No pedal edema. ADMITTING DIAGNOSES: 1. A 39-6/7 weeks intrauterine with suspected macrosomia. 2. Gestational diabetes. 3. The patient had a repeat ultrasound and estimated weight was 4020 grams. PLAN: The patient and the wanted to go for for suspected macrosomia. The procedure explained to them and both understood everything totally, that is the benefits and alternatives were discussed with them as well. Dictated By: Renetta Amor MD /dada/annetta /Document#: [id number]
[2017-05-26] MEDS: IBUPROFEN 800 MG TAB PO SCH ×2 (14:00→22:00)
[2017-05-26] MEDS: OXYCODONE/ACETAMINOPHEN (5/325) TAB PO PRN (16:17)
[2017-05-26] MEDS ORDERED: MAGNESIUM HYDROXIDE 30ML CUP PO ONE (21:00)
[2017-05-27] VITALS: BP 105/62; PULSE 93; RESP 18
[2017-05-27] MEDS: ACETAMINOPHEN/CODEINE #3 TAB PO PRN ×2 (01:49→03:25)
[2017-05-27 04:00] VITALS: BP 110/65; PULSE 104; RESP 20
[2017-05-27] MEDS ORDERED: OXYCODONE/ACETAMINOPHEN (5/325) TAB PO PRN (05:00)
[2017-05-27] MEDS: IBUPROFEN 800 MG TAB PO SCH ×3 (05:05→17:24)
[2017-05-27 06:25] VITALS: PULSE 88
[2017-05-27 08:25] VITALS: BP 108/61; PULSE 85; RESP 16
[2017-05-27] MEDS: SENNA/DOCUSATE NA (8.6MG/50MG) TAB PO SCH ×2 (09:28→21:21)
[2017-05-27] MEDS ORDERED: MAGNESIUM HYDROXIDE 30ML CUP PO ONE (09:30)
[2017-05-27] MEDS ORDERED: BISACODYL 10 MG SUPP PR ONE (09:30)
[2017-05-27 10:34] LABS: WHITE BLOOD COUNT 11.6 10^3/ul (4.8-10.8)
[2017-05-27 10:35] LABS: BASOPHILS % 0.2 % (0.0-2.0); EOSINOPHILS # 0.1 10^3/ul (0.0-0.5); EOSINOPHILS % 0.8 % (0.0-7.0); HEMATOCRIT 27.7 % (37.0-47.0); HEMOGLOBIN 8.9 g/dl (12.0-16.0); LYMPHOCYTES # 2.1 10^3/ul (0.8-2.9); LYMPHOCYTES % 17.9 % (15.0-51.0); MEAN CORPUSCULAR HEMOGLOBIN 28.9 pg (29.0-33.0); MEAN CORPUSCULAR HGB CONC 32.1 g/dl (32.0-37.0); MEAN CORPUSCULAR VOLUME 89.9 fl (82.0-101.0); MONOCYTE # 0.7 10^3/ul (0.3-0.9); MONOCYTES % 6.1 % (0.0-11.0); NEUTROPHIL # 8.7 10^3/ul (1.6-7.5); NEUTROPHILS % 74.5 % (39.0-77.0); PLATELET COUNT 221 10^3/UL (140-415); RED BLOOD COUNT 3.08 10^6/ul (4.20-5.40); RED CELL DISTRIBUTION WIDTH 15.5 % (11.5-14.5)
[2017-05-27] MEDS: OXYCODONE/ACETAMINOPHEN (5/325) TAB PO PRN ×2 (10:45→14:48)
[2017-05-27 15:16] VITALS: BP 128/75; PULSE 90; RESP 20
[2017-05-27 20:00] VITALS: BP 117/68; PULSE 102; RESP 20
[2017-05-28] MEDS: IBUPROFEN 800 MG TAB PO SCH ×3 (00:19→12:16)
[2017-05-28 03:38] VITALS: BP 120/64; PULSE 72; RESP 18
[2017-05-28 08:00] VITALS: BP 119/72; PULSE 99; RESP 18
[2017-05-28] MEDS ORDERED: DIPHTH/TET/ACEL PERTUSS (ADULT) 0.5 ML VIAL IM* ONE (09:00)
[2017-05-28] MEDS: SENNA/DOCUSATE NA (8.6MG/50MG) TAB PO SCH (09:00)
[2017-05-28] MEDS ORDERED: MEASLES,MUMPS,RUBELLA VACCINE INJ SC* ONE (09:00)
== END 2017-05-28 17:57 | disposition home or self-care (01) | DRG 766 ==
LOC: L-D 08:08 → PP1 16:11
PROVIDERS: ADMIT Obstetrics & Gynecology; ATTEND Obstetrics & Gynecology
PROC: 10D00Z1 Extraction of Products of Conception, Low, Open Approach (ICD-10-PCS; principal; 2017-05-25 12:00)
DX: O36.63X0 Maternal care for excessive fetal growth, third trimester, not applicable or unspecified (principal); O24.429 Gestational diabetes mellitus in childbirth, unspecified control; Z3A.39 39 weeks gestation of pregnancy; Z37.0 Single live birth
CPT/HCPCS: 62319; 76815; 80048; 80053; 81001; 83735; 84560; 85025; 85384; 85610; 85730; 86592; 86850; 86900; 86901; 90715; 94760; 99464; J0690; J1885; J2210; J2250; J2274; J2590; J2765; J3010; J3475; J7120

== ENCOUNTER 2017-09-28 20:10 | Emergency (ER) | payer OTHER ==
[~2017-09-28] VITALS: Ht 162.6 cm; Wt 61.7 kg
[~2017-09-28 20:10] MED LIST changes: -ACET325T33 PO; -CEPH-443 PO; +PRENAT PO
[2017-09-28 20:16] VITALS: Ht 162.6 cm; Wt 61.7 kg
[2017-09-28] MEDS ORDERED: ALPRAZOLAM 0.25 MG TAB PO ONE (21:00)
[2017-09-28] MEDS ORDERED: ACETAMINOPHEN 325 MG TAB PO ONE (22:30)
[2017-09-29] MEDS ORDERED: ALPR0.5T PO
[2017-09-29] MEDS ORDERED: BUTA1CAP38 PO
--- NOTE | 2017-09-29 00:08 | ERD ---
ER Documentation Chief Complaint Chief Complaint for PSYCH evaluation for depession and dificulty of sleeping denies si/hi HPI 22-year-old female presents to the ER for having trouble sleeping and having some anxiety as well. She has a 4-month-old baby. She is not breast-feeding. States that she has had trouble sleeping lately although she does have excellent support at home both her and her father who accompanied to the ER. No thoughts of harming herself or anybody else including the baby. States that she just feels overwhelmed and is very tired from being asleep. She does get occasional headaches at the back of her head. No headache currently. No other pain. ROS All systems reviewed and are negative except as per history of present illness. Medications Home Meds Active Scripts Mxpljzczso-Kwumvqibqozao-Qqpyjcvt* (Fioricet*) 50-300-40 Mg Capsule, 1 CAP PO Q4H Y for HEADACHE, #5 CAP Prov:ERIKA VILLELA DO 09/29/17 Alprazolam* (Xanax*) 0.5 Mg Tab, 0.5 MG PO QHS Y for ANXIETY, #8 TAB Prov:ERIKA VILLELA DO 09/29/17 Reported Medications Multivit/Min/Fol Ac/Iron/Pren* ( S*) 1 Tab Tab, 1 TAB PO DAILY, TAB 05/25/17 Allergies Allergies: Coded Allergies: No Known Allergy (Unverified , 11/09/16) PMhx/Soc Medical and Surgical Hx: pt denies Medical Hx History of Surgery: Yes ( 05/2017) Hx Alcohol Use: No Hx Substance Use: No Hx Tobacco Use: No Smoking Status: Never smoker Physical Exam Vitals Vital Signs Date Time Temp Pulse Resp B/P Pulse Ox O2 Delivery O2 Flow Rate FiO2 09/28/17 20:16 97.7 78 20 128/87 100 Physical Exam Const: [] Head: Atraumatic Eyes: Normal Conjunctiva ENT: Normal External Ears, Nose and Mouth. Neck: Full range of motion..~ No meningismus. Resp: Clear to auscultation bilaterally Cardio: Regular rate and rhythm, no murmurs Abd: Soft, non tender, non distended. Normal bowel sounds Skin: No petechiae or rashes Back: No midline or flank tenderness Ext: No cyanosis, or edema Neur: Awake and alert Psych: Normal Mood and Affect Results 24 hrs Current Medications Medications (Trade) Dose Ordered Sig/Kylee Route PRN Reason Start Time Stop Time Status Last Admin Dose Admin Alprazolam (Xanax) 0.5 mg ONCE ONCE PO 09/28/17 21:00 09/28/17 21:01 DC 09/28/17 20:57 Acetaminophen (Tylenol Tab) 650 mg ONCE ONCE PO 09/28/17 22:30 09/28/17 22:31 DC 09/28/17 23:36 Procedures/MDM Anxiety related to insomnia. Patient has no thoughts of harming herself or others and has an excellent support system at home. Is no symptoms any physical illness causing it. Did develop a mild headache in the emergency room and was given Tylenol which relieved the headache. Believes she definitely needs to sleep. She was given a Xanax in the emergency room which made her feel much better. She was smiling although she was sleepy and did not feel the same depression that she had felt before. I am going to discharge with a few Xanax pills nightly to allow her to sleep well as well as a few Fioricet for headache. Instructed not to take 2 at the same time as the caffeine will cut her fact the effects of Xanax to sleep. I have very low suspicion for any pulmonary embolism or serious psychiatric illness. Departure Diagnosis: Primary Impression: Insomnia Additional Impression: Anxiety Condition: Stable Patient Instructions: Your Body's Response to Anxiety, Treating Insomnia Additional Instructions: Call your primary care doctor TOMORROW for an appointment during the next 2-3 days.See the doctor sooner or return here if your condition worsens before your appointment time. ERIKA VILLELA DO Sep 29, 2017 00:08
[2017-09-29 00:11] VITALS: BP 117/96; PULSE 77; RESP 14; TEMP 98.6
== END 2017-09-29 00:12 | disposition home or self-care (01) ==
LOC: E/R 20:10
DX: G47.00 Insomnia, unspecified (principal); F41.9 Anxiety disorder, unspecified
CPT/HCPCS: Z7502; Z7610

== ENCOUNTER 2019-03-02 18:52 | Emergency (ER) | payer OTHER ==
[~2019-03-02] VITALS: Ht 157.5 cm; Wt 72.4 kg
[~2019-03-02 18:52] MED LIST changes: +ALPR0.5T PO; +BUTA1CAP38 PO
[2019-03-02 19:16] VITALS: Ht 157.5 cm; Wt 72.4 kg
--- NOTE | 2019-03-02 22:49 | ERD ---
ER Documentation Chief Complaint Chief Complaint CP RADIATING TO BACK X'S 2 WEEKS, PAIN INCREASING HPI 23-year-old female presents with complaint of chest wall pain for the past month. States has been increasing over the last 3 days. This the pain feels like a pressure and is on and off. States that the pain is made worse when c arrying objects. Systems he has been stressed out lately due to the loss of her mother a few months ago. Denies SOB, dyspnea, lower extremity swelling or pain, pain on exertion, diaphoresis, nausea, radiating of pain, recent travel or immobilization, hemoptysis, dsypnea, history of clotting disorder, syncope, fever, or cough. ROS All systems reviewed and are negative except as per history of present illness. Medications Home Meds Active Scripts Yvwwmeipnj-Nzjlfnqoaqshf-Gjwrzewv* (Fioricet*) 50-300-40 Mg Capsule, 1 CAP PO Q4H PRN for HEADACHE, #5 CAP Prov:ERIKA VILLELA DO 09/29/17 Alprazolam* (Xanax*) 0.5 Mg Tab, 0.5 MG PO QHS PRN for ANXIETY, #8 TAB Prov:ERIKA VILLELA DO 09/29/17 Reported Medications Multivit/Min/Fol Ac/Iron/Pren* ( S*) 1 Tab Tab, 1 TAB PO DAILY, TAB 05/25/17 Allergies Allergies: Coded Allergies: No Known Allergy (Unverified , 11/09/16) PMhx/Soc Anesthesia Reaction: No Hx Neurological Disorder: No Hx Respiratory Disorders: No Hx Cardiac Disorders: No Hx Psychiatric Problems: No Hx Miscellaneous Medical Probl: Yes (MIGRAINES ) Hx Alcohol Use: No Hx Substance Use: No Hx Tobacco Use: No Smoking Status: Never smoker FmHx Family History: No diabetes, No coronary disease, No other Physical Exam Vitals Vital Signs Date Temp Pulse Resp B/P (MAP) Pulse Ox O2 O2 Flow FiO2 Time Delivery Rate 03/02/19 98.6 98 20 157/100 99 19:16 (119) Physical Exam Const: No acute distress Head: Atraumatic Eyes: Normal Conjunctiva ENT: Normal External Ears, Nose and Mouth. No JVD. Neck: Full range of motion. No meningismus. Resp: Clear to auscultation bilaterally Cardio: Regular rate and rhythm, no murmurs Abd: Soft, non tender, non distended. Normal bowel sounds. No pulsating ma sses. Skin: No petechiae or rashes Back: No midline or flank tenderness Ext: No cyanosis, or edema Neur: Awake and alert Psych: Normal Mood and Affect Result Diagram: 03/02/19230303/02/192303 Results 24 hrs Laboratory Tests Test 03/02/19 23:04 03/02/19 23:06 White Blood Count 7.7 10^3/ul Red Blood Count 4.26 10^6/ul Hemoglobin 11.9 g/dl Hematocrit 37.2 % Mean Corpuscular Volume 87.3 fl Mean Corpuscular Hemoglobin 27.9 pg Mean Corpuscular Hemoglobin Concent 32.0 g/dl Red Cell Distribution Width 12.9 % Platelet Count 321 10^3/UL Mean Platelet Volume 8.7 fl Immature Granulocytes % 0.300 % Neutrophils % 62.2 % Lymphocytes % 28.5 % Monocytes % 5.6 % Eosinophils % 3.0 % Basophils % 0.4 % Nucleated Red Blood Cells % 0.0 /100WBC Immature Granulocytes # 0.020 10^3/ul Neutrophils # 4.8 10^3/ul Lymphocytes # 2.2 10^3/ul Monocytes # 0.4 10^3/ul Eosinophils # 0.2 10^3/ul Basophils # 0.0 10^3/ul Nucleated Red Blood Cells # 0.0 10^3/ul Sodium Level 143 mmol/L Potassium Level 3.6 mmol/L Chloride Level 104 mmol/L Carbon Dioxide Level 30 mmol/L Anion Gap 9 Blood Urea Nitrogen 13 mg/dl Creatinine 0.59 mg/dl Est Glomerular Filtrat Rate mL/min > 60 mL/min Glucose Level 90 mg/dl Calcium Level 9.7 mg/dl Total Bilirubin 0.2 mg/dl Direct Bilirubin 0.00 mg/dl Indirect Bilirubin 0.2 mg/dl Aspartate Amino Transf (AST/SGOT) 22 IU/L Alanine Aminotransferase (ALT/SGPT) 33 IU/L Alkaline Phosphatase 51 IU/L Troponin I < 0.012 ng/ml Total Protein 7.9 g/dl Albumin 4.6 g/dl Globulin 3.30 g/dl Albumin/Globulin Ratio 1.39 POC Beta HCG, Qualitative NEGATIVE Procedures/MDM DIAGNOSTIC IMAGING REPORT Patient: JANIE SMALLWOOD : 1995 Age: 23 Sex: F MR #: [id number] DOS: 03/02/192236 Ordering MD: SAEED RICKS Location: [facility] Room/Bed: PROCEDURE: Ultrasound examination of the abdominal aorta. CLINICAL INDICATION: Chest pain extending to the back. TECHNIQUE: Multiple sonographic images of the abdominal aorta were obtained with gonsalez scale and color Doppler. COMPARISON: None. FINDINGS: The abdominal aorta is of normal course and caliber. The proximal aorta measures 1.5 cm, the mid aorta measures 1.4 cm, and the distal aorta measures 1.0 cm. There is no evidence of abdominal aortic aneurysm. There is no periaortic collection identified. IMPRESSION: Unremarkable abdominal aorta. .Rafael Stoner MD, MD Date Time Electronically viewed and signed by .Rafael Stoner MD, MD on 03/03/2019 00:03 .T/ CC: SAEED RICKS [id number] DIAGNOSTIC IMAGING REPORT Patient: JANIE SMALLWOOD : 1995 Age: 23 Sex: F MR #: [id number] DOS: 03/02/192236 Ordering MD: SAEED RICKS Location: [facility] Room/Bed: PROCEDURE: Chest. CLINICAL INDICATION: Chest pain. TECHNIQUE: Single frontal view of the chest was obtained. COMPARISON: None. FINDINGS: The cardiac silhouette is within normal limits. The aortic arch is unremarkable. There is no focal consolidation, vascular congestion or pleural effusion. There is no pneumothorax. IMPRESSION: No evidence for active cardiopulmonary disease. .Rafael Stoner MD, MD Date Time Electronically viewed and signed by .Rafael Stoner MD, MD on 03/03/2019 00:01 .T/ CC: SAEED RICKS [id number] EKG: Rate/Rhythm: Normal Sinus Rhythm QRS, ST, T-waves: No changes consistent w/ acute ischemia Impression: No evidence of ischemia or arrhythmia MDM: Chest x-ray, ultrasound, EKG, troponin with all within normal limits. Patient possibly suffering from anxiety since she just lost her mom which could be causing the chest pain since this started around the same time, however patient was advised to follow-up with a soil field technician for further testing and monitoring. I have low suspicition for acute coronary syndrome, pulmonary embolism, aortic dissection, AAA, pneumothorax, esophageal rupture, pericarditis, myocarditis, or pneumonia based on EKG, imaging, labs, patient history and exam. Patient discharged with strict ER precautions. Patient advised to follow up with PMD. All questions answered at discharge. Departure Diagnosis: Primary Impression: Chest wall pain Condition: Stable SAEED RICKS Mar 02, 2019 22:49
[2019-03-03 01:00] VITALS: BP 121/80; PULSE 93; RESP 18
[2019-03-03] MEDS ORDERED: IBUPROFEN 600 MG TAB PO ONE (01:00)
== END 2019-03-03 01:02 | disposition home or self-care (01) ==
LOC: FTE 18:52
DX: R07.89 Other chest pain (principal)
CPT/HCPCS: 36415; 71045; 76775; 80053; 81025; 84484; 85025; 93005; Z7502; Z7610